=== PATIENT | female | born 1975 | race Asian ===

== ENCOUNTER 2017-10-09 11:04 | Emergency (ER) | payer OTHER ==
[2017-10-09] MEDS: FLUORESCEIN STRIP BOTH EYES (11:56)
[2017-10-09] MEDS: TETRACAINE 0.5% 4 ML OPH BOTH EYES (11:57)
== END 2017-10-09 12:25 | disposition home or self-care (01) ==
LOC: FTE 11:04
DX: H10.9 Unspecified conjunctivitis (principal); J30.9 Allergic rhinitis, unspecified
CPT/HCPCS: 99283; Z7502

== ENCOUNTER 2017-12-09 23:58 | Emergency (ER) | payer SELFPAY, OTHER | END 2017-12-10 00:08 | disposition left against medical advice (07) | LOC: E/R 23:58 | DX: Z53.21 Procedure and treatment not carried out due to patient leaving prior to being seen by health care provider (principal) ==

== ENCOUNTER 2017-12-22 07:18 | Emergency (ER) | payer OTHER ==
[2017-12-22 08:12] LABS: URINE BLOOD (Dip) POC Negative (NEGATIVE); URINE GLUCOSE (Dip) POC Negative (NEGATIVE); URINE KETONES (Dip) POC Negative (NEGATIVE); URINE LEUKOCYTE EST (Dip) POC 1+ (NEGATIVE); URINE NITRITE (Dip) POC Negative (NEGATIVE); URINE TOTAL PROTEIN POC Negative (NEGATIVE)
== END 2017-12-22 09:10 | disposition home or self-care (01) ==
LOC: FTE 07:18
DX: N39.0 Urinary tract infection, site not specified (principal); K52.9 Noninfective gastroenteritis and colitis, unspecified
CPT/HCPCS: 81003; 81025; 99283

== ENCOUNTER 2018-05-24 08:56 | Emergency (ER) | payer OTHER ==
[2018-05-24] MEDS: IBUPROFEN 600 MG TAB PO (10:20)
== END 2018-05-24 10:46 | disposition home or self-care (01) ==
LOC: E/R 08:56
DX: R50.9 Fever, unspecified (principal); R05 Cough; R09.81 Nasal congestion
CPT/HCPCS: 99283